=== PATIENT | female | born 1960 | race Two or more races ===

== ENCOUNTER 2021-07-22 13:45 | Inpatient (IN) | payer OTHER ==
[~2021-07-22] VITALS: Ht 157.5 cm; Wt 99.8 kg
== END 2021-07-25 13:33 | disposition home or self-care (01) | DRG 741 ==
LOC: SURH 13:45 → OB/GYN 07-23 05:37 → O/R 07-23 05:37 → OB/GYN 07-23 22:06
PROVIDERS: ADMIT Specialist; ATTEND Specialist
PROC: 0UT24ZZ Resection of Bilateral Ovaries, Percutaneous Endoscopic Approach (ICD-10-PCS; 2021-07-23)
PROC: 0UT74ZZ Resection of Bilateral Fallopian Tubes, Percutaneous Endoscopic Approach (ICD-10-PCS; 2021-07-23)
PROC: 07BC4ZZ Excision of Pelvis Lymphatic, Percutaneous Endoscopic Approach (ICD-10-PCS; 2021-07-23)
PROC: 0UT94ZZ Resection of Uterus, Percutaneous Endoscopic Approach (ICD-10-PCS; principal; 2021-07-23 12:45)
DX: C54.1 Malignant neoplasm of endometrium (principal); N95.0 Postmenopausal bleeding